=== PATIENT | female | born 1985 | race Caucasian/White ===

== ENCOUNTER 2019-03-09 08:00 | Outpatient (CLI) | payer MEDICAID | END 2019-03-09 23:59 | disposition home or self-care (01) | LOC: LAB.R 08:00 | PROVIDERS: ATTEND Nurse Practitioner Obstetrics & Gynecology | DX: N89.8 Other specified noninflammatory disorders of vagina (principal); Z11.3 Encounter for screening for infections with a predominantly sexual mode of transmission | CPT/HCPCS: 36415; 81599; 86592; 86695; 86696; 86803; 87389; 87480; 87491; 87510; 87591; 87660 ==

== ENCOUNTER 2019-03-09 09:39 | Outpatient (CLI) | payer MEDICAID ==
[2019-03-10 13:46] LABS: HIV AG/AB 4TH GEN NON-REACTIVE (NON-REACTIVE)
[2019-03-10 14:53] LABS: HEPATITIS C ANTIBODY NON-REACTIVE (NON-REACTIVE)
[2019-03-11 12:07] LABS: HSV 1 IGG TYPE SPECIFIC AB 22.3 index; HSV 2 IGG TYPE SPECIFIC AB 1.12 index
== END 2019-03-09 09:40 | disposition home or self-care (01) ==
LOC: LAB.F 09:39
PROVIDERS: ATTEND Nurse Practitioner Obstetrics & Gynecology
DX: Z11.3 Encounter for screening for infections with a predominantly sexual mode of transmission (principal)
CPT/HCPCS: 36415; 81599; 86695; 86696; 86803; 87389

== ENCOUNTER 2020-05-16 07:00 | Outpatient (CLI) | payer MEDICAID ==
[2020-05-16 19:00] LABS: CANDIDA GROUP DNA NEGATIVE (NEGATIVE); CANDIDA KRUSEI DNA NEGATIVE (NEGATIVE); TRICHOMONAS VAGINALIS DNA NEGATIVE (NEGATIVE)
== END 2020-05-16 23:59 | disposition home or self-care (01) ==
LOC: LAB.R 07:00
PROVIDERS: ATTEND Advanced Practice Midwife
DX: N76.0 Acute vaginitis (principal)
CPT/HCPCS: 87661; 87801

== ENCOUNTER 2021-03-31 09:34 | Outpatient (CLI) | payer MEDICAID ==
[2021-03-31 15:28] LABS: BASOPHILS % (AUTO) 0.5 %; EOSINOPHILS # (AUTO) 0.1 10^3/uL (0.0-0.7); EOSINOPHILS % (AUTO) 1.8 %; HCT - HEMATOCRIT 38.5 % (37.0-47.0); LYMPHOCYTES # (AUTO) 2.4 10^3/uL (1.5-3.5); LYMPHOCYTES % (AUTO) 33.2 %; MEAN CORPUSCULAR HGB CONC 28.6 g/dL (32.0-36.0); MEAN CORPUSCULAR VOLUME 77.2 fL (81.0-99.0); MEAN PLATELET VOLUME 8.8 fL (7.9-10.8); MONOCYTES # (AUTO) 0.5 10^3/uL (0.0-1.0); MONOCYTES % (AUTO) 7.1 %; NEUTROPHILS # (AUTO) 4.2 10^3/uL (1.5-6.6); PLT - PLATELET COUNT 370 10^3/uL (130-450); RED BLOOD COUNT 4.99 10^6/uL (4.20-5.40); RED CELL DISTRIBUTION WIDTH 16.2 % (12.0-15.0); WHITE BLOOD COUNT 7.3 x10^3/uL (4.8-10.8)
[2021-03-31 16:06] LABS: ALBUMIN/GLOBULIN RATIO 1.1 (1.0-2.2); BILIRUBIN,TOTAL 0.7 mg/dL (0.2-1.0); CREATININE 0.6 mg/dL (0.4-1.0); POTASSIUM 3.8 mmol/L (3.5-5.0); TOTAL PROTEIN 7.6 g/dL (6.7-8.2)
[2021-03-31 16:53] LABS: THYROID STIMULATING HORMONE 1.48 uIU/mL (0.34-5.60)
== END 2021-03-31 09:35 | disposition home or self-care (01) ==
LOC: LAB.S 09:34
PROVIDERS: ATTEND Registered Nurse
DX: F41.9 Anxiety disorder, unspecified (principal); F32.9 Major depressive disorder, single episode, unspecified; Z79.899 Other long term (current) drug therapy
CPT/HCPCS: 36415; 80053; 84443; 85025

== ENCOUNTER 2021-11-14 09:00 | Outpatient (CLI) | payer MEDICAID ==
[2021-11-15 01:41] LABS: BACTERIAL VAGINOSIS DNA NEGATIVE (NEGATIVE); CANDIDA GLABRATA DNA NEGATIVE (NEGATIVE); CANDIDA GROUP DNA NEGATIVE (NEGATIVE); CANDIDA KRUSEI DNA NEGATIVE (NEGATIVE); TRICHOMONAS VAGINALIS DNA NEGATIVE (NEGATIVE)
== END 2021-11-14 23:59 | disposition home or self-care (01) ==
LOC: LAB.WC 09:00
PROVIDERS: ATTEND Nurse Practitioner Obstetrics & Gynecology
DX: N89.8 Other specified noninflammatory disorders of vagina (principal)
CPT/HCPCS: 87661; 87801

== ENCOUNTER 2022-03-20 14:53 | Outpatient (CLI) | payer MEDICAID ==
--- NOTE | 2022-03-22 16:42 | XRAY Report ---
PROCEDURE: Hips 2V BILAT INDICATIONS: ELBOW, WRIST, HIP PAIN TECHNIQUE: 2 views of the right hip and left hip were acquired. COMPARISON: None FINDINGS: Bones: No fractures or dislocations. No suspicious bony lesions. The visualized pelvic ring appear s intact. Mild bilateral hip osseous hypertrophy Soft tissues: No suspicious soft tissue calcifications or masses. Intrauterine device projects over the mid pelvis. IMPRESSION: Mild bilateral hip osteoarthritis. Reviewed by: Lorri Wells MD, PhD on 03/22/2022 4:41 PM PDT Approved by: Lorri Wells MD, PhD on 03/22/2022 4:41 PM PDT Station ID: [id number]
--- NOTE | 2022-03-22 18:22 | XRAY Report ---
PROCEDURE: Elbow 2 View RT INDICATIONS: ELBOW, WRIST, HIP PAIN TECHNIQUE: 2 views of the elbow were acquired. COMPARISON: None FINDINGS: Bones: No fractures or dislocations. No suspicious bony lesions. Soft tissues: No elbow joint effusion. No suspicious soft tissue calcifications. IMPRESSION: Right elbow without acute fracture or dislocation. No significant degenerative change. Reviewed by: Femi Zamarripa MD on 03/22/2022 6:20 PM PDT Approved by: Femi Zamarripa MD on 03/22/2022 6:20 PM PDT Station ID: [id number]
--- NOTE | 2022-03-22 18:24 | XRAY Report ---
PROCEDURE: Elbow 2 View LT INDICATIONS: ELBOW, WRIST, HIP PAIN TECHNIQUE: 2 views of the elbow were acquired. COMPARISON: None FINDINGS: Bones: No fractures or dislocations. No suspicious bony lesions. Soft tissues: No elbow joint effusion. No suspicious soft tissue calcifications. IMPRESSION: Left elbow without acute fracture or dislocation. No significant degenerative change. Reviewed by: Femi Zamarripa MD on 03/22/2022 6:22 PM PDT Approved by: Femi Zamarripa MD on 03/22/2022 6:22 PM PDT Station ID: [id number]
--- NOTE | 2022-03-22 18:34 | XRAY Report ---
PROCEDURE: Wrist 2 View BILAT INDICATIONS: ELBOW, WRIST, HIP PAIN TECHNIQUE: 3 views of each wrist were acquired. COMPARISON: None FINDINGS: Bones: No fractures or dislocations. No suspicious bony lesions. No significant degenerative bello es. Normal bone mineral density. No osseous erosions. Soft tissues: No suspicious soft tissue calcifications. IMPRESSION: Bilateral wrist without acute radiographic abnormalities or significant degenerative changes. Reviewed by: Femi Zamarripa MD on 03/22/2022 6:32 PM PDT Approved by: Femi Zamarripa MD on 03/22/2022 6:32 PM PDT Station ID: [id number]
== END 2022-03-20 14:54 | disposition home or self-care (01) ==
LOC: DI.S 14:53
PROVIDERS: ATTEND Registered Nurse
DX: M16.0 Bilateral primary osteoarthritis of hip (principal); M25.522 Pain in left elbow; M25.521 Pain in right elbow; M25.531 Pain in right wrist; M25.532 Pain in left wrist

== ENCOUNTER 2023-02-05 11:15 | Outpatient (CLI) | payer MEDICAID ==
--- NOTE | 2023-02-05 10:08 | XRAY Report ---
PROCEDURE: Cervical Spine 2 View INDICATIONS: CERVICAL RADICULOPATHY TECHNIQUE: 3 view(s) of the cervical spine were acquired. COMPARISON: None. FINDINGS: Bones: No fractures or dislocations to the C7 level. The lateral masses of C1 appear intact on the odontoid view. No suspicious bony lesions. Soft tissues: No prevertebral soft tissue swelling. IMPRESSION: No significant degenerative change. Reviewed by: Salomón Don on 02/05/2023 10:07 AM [facility] Approved by: Salomón Don on 02/05/2023 10:07 AM [facility] Station ID: [id number]
== END 2023-02-05 11:16 | disposition home or self-care (01) ==
LOC: DI.S 11:15
PROVIDERS: ATTEND Physician Assistant Medical
DX: M54.12 Radiculopathy, cervical region (principal)

== ENCOUNTER 2023-08-08 12:51 | Outpatient (CLI) | payer MEDICAID | END 2023-08-08 12:52 | disposition home or self-care (01) | LOC: SC 12:51 | PROVIDERS: ATTEND Nurse Practitioner Family | DX: G47.33 Obstructive sleep apnea (adult) (pediatric) (principal); R09.02 Hypoxemia; E66.9 Obesity, unspecified; Z68.37 Body mass index [BMI] 37.0-37.9, adult | CPT/HCPCS: 95806 ==

== ENCOUNTER 2023-08-29 09:55 | Outpatient (CLI) | payer MEDICAID ==
--- NOTE | 2023-08-29 13:57 | XRAY Report ---
PROCEDURE: Chest 2 View X-Ray INDICATIONS: BRONCHITIS TECHNIQUE: 2 views of the chest were acquired. COMPARISON: None. FINDINGS: Surgical changes and devices: None. Lungs and pleura: No pleural effusions or pneumothorax. Lungs are clear. Mediastinum: Mediastinal contours appear normal. Heart size is normal. Bones and chest wall: No suspicious bony lesions. Overlying soft tissues appear unremarkable. IMPRESSION: No acute cardiopulmonary process. Reviewed by: Dayana Delgado MD on 08/29/2023 1:56 PM PDT Approved by: Dayana Delgado MD on 08/29/2023 1:56 PM PDT Station ID: [id number]
== END 2023-08-29 23:59 | disposition home or self-care (01) ==
LOC: DI.S 09:55
PROVIDERS: ATTEND Emergency Medicine
DX: J20.9 Acute bronchitis, unspecified (principal)

== ENCOUNTER 2023-09-11 15:00 | Outpatient (CLI) | payer MEDICAID ==
--- NOTE | 2023-09-11 14:59 | SLEEP CARE CONSULTATION ---
Information from patient questionnaire entered by Violetta Mixon. I have reviewed and concur with the information entered by Violetta Mixon. This document represents the service I personally performed and the decisions made by , Marisela Moon ARNP. History of Present Illness Service Date and Time: 09/11/2023 1440 Initial [place] Sleepiness Scale score: 6 (06/20/23) Current [place] Sleepiness Scale score: 8 (09/11/23) Additional HPI information: STACY MORFIN returns via video telehealth visit for follow up and results of the recently performed home sleep study. Her sleep study showed mild obstructive sleep apnea with an average AHI of 8.2 and danica oxygen saturation of 88%. I explained the pathophysiology behind obstructive sleep apnea. We then spent quite a bit of time discussing different treatment options. For mild obs tructive sleep apnea, surgery and oral appliance are alternatives to nasal CPAP therapy but in moderate or severe cases, nasal CPAP is the most effective and reliable treatment. I reviewed the impact of weight changes on sleep apnea and strongly recommended losing weight. Patient counseled not drink alcohol less than 4 hours before bedtime as it can increase snoring and apnea. Patient was cautioned about risks of drowsy driving until sleepiness symptoms resolve. Patient denies drowsy driving. Sleep Study - Results Type of Sleep Study: Home sleep study (COMPLETED 08/08/23) Prior sleep studies: No Polysomnography/Home Sleep Study results: Physician Impression: The quality of the study is good. The length of the study is adequate (> 240 minutes). Please also see the tabulated and graphic data. 1. Obstructive Sleep Apnea-Hypopnea (ICD-10 G47.33), mild, with an AHI of 8.2/hr and danica SaO2 of 88%. During the study, the patient had 12 apneas (12 obstructive, 0 central, 0 mixed) and 52 hypopneas. The longest episode lasted 99.0 seconds. The respiratory events occurred more frequently during supine sleep (supine AHI was 12.1 and non-supine, 6.80). 2. Hypoxemia (ICD-10 R09.02), minimal, with the lowest oxygen saturation of 88 % and 0.3 minutes with SaO2 under 90%. Baseline oxygen saturation was normal (Average oxygen saturation was 95%). Allergies and Home Medications Known drug allergies: No Drug allergies reviewed: Yes Home medication list reviewed: Yes (no changes) Allergy and home medication list: Allergies No Known Drug Allergies Allergy (Verified 09/04/23 15:25) Review of Systems Review of systems same as previous: Yes (NO CHANGE) Physical Exam Vital signs obtained and entered by: VIOLETTA Antoine MA Height: 5 ft (PER PT) Weight: 195 lb (PER PT) Body Mass Index: 38.0 BMI Classification: Obese Impression and Plan 1. Obstructive Sleep Apnea-Hypopnea Syndrome, mild, with lowest oxygen saturation of 8.2. Obviously this is the cause of the patients symptoms of unrefreshed sleep, and excessive daytime sleepiness. Positive pressure therapy could benefit possible fibromyalgia, anxiety and depression. The patient chose an oral appliance to treat their apnea. We will followup with her a month after she starts using the oral appliance to see if appliance has reduced symptoms. If so, another polysomnography will be ordered with use of the oral appliance to check efficacy in reducing apnea. Until patient is able to use the oral appliance, positional therapy is advised to avoid supine sleep with pillow positioning or one of the commercial products because apnea is more severe supine. 2. Hypoxemia, minimal, with a danica oxygen saturation of 88% and 0.3 minutes spent under 90%. Her baseline oxygen saturation was normal with an average oxygen saturation of 95%. 2. Obesity, unspecified. Currently patients BMI is 38. Obesity increases the risk of apnea, CPAP pressure requirements and overall health risks especially cardiovascular and diabetes. Thus patient is advised to lose weight. * Oral appliance * Attempt to lose weight. * Avoid alcohol consumption near bedtime. * Avoid supine sleep until using oral appliance. * The patient is again cautioned about driving until sleepiness completely resolves. * Return one month after oral appliance obtained. I will assess response to therapy at that time. Counseling Topics: Weight loss health impact Prescriptions: Other (Oral appliance) Visit Type: Telehealth Video Video Type: Doximity Patient Location: Work Location of Provider: Office Patient agrees and consents to this telehealth visit type: Yes Patient agrees to have their insurance billed: Yes Time Spent with Patient (minutes): 18 Provider Statement: I spent 100% of the Telehealth Video Call with the patient with greater than 50% spent counseling the patient and coordination of care.
== END 2023-09-11 15:01 | disposition home or self-care (01) ==
LOC: SC 15:00
PROVIDERS: ATTEND Nurse Practitioner Family
DX: G47.33 Obstructive sleep apnea (adult) (pediatric) (principal); R09.02 Hypoxemia; E66.9 Obesity, unspecified; Z68.38 Body mass index [BMI] 38.0-38.9, adult

== ENCOUNTER 2023-09-13 07:00 | Outpatient (CLI) | payer MEDICAID ==
--- NOTE | 2023-09-13 19:35 | XRAY Report ---
PROCEDURE: Chest 2 View X-Ray INDICATIONS: LEFT CHEST PAIN TECHNIQUE: 2 views of the chest were obtained. COMPARISON: 08/29/2023 FINDINGS: Surgical changes and devices: None. Lungs and pleura: No pleural effusions or pneumothorax. Lungs are clear. Mediastinum: Mediastinal contours appear normal. Heart size is normal. Bones and chest wall: No suspicious bony lesions. Overlying soft tissues appear unremarkable. IMPRESSION: Normal two-view chest x-ray Reviewed by: Daren Gonsalves MD on 09/13/2023 6:34 PM [facility] Approved by: Daren Gonsalves MD on 09/13/2023 6:34 PM [facility] Station ID: [id number]
== END 2023-09-13 23:59 | disposition home or self-care (01) ==
LOC: DI.S 07:00
PROVIDERS: ATTEND Physician Assistant
DX: R07.89 Other chest pain (principal)

== ENCOUNTER 2024-05-13 08:28 | Outpatient (CLI) | payer MEDICAID ==
[2024-05-13 15:09] LABS: BASOPHILS # (AUTO) 0.1 10^3/uL (0.0-0.1); BASOPHILS % (AUTO) 0.9 %; EOSINOPHILS # (AUTO) 0.2 10^3/uL (0.0-0.7); EOSINOPHILS % (AUTO) 3.3 %; HCT - HEMATOCRIT 41.2 % (37.0-47.0); HGB - HEMOGLOBIN 12.5 g/dL (12.0-16.0); LYMPHOCYTES # (AUTO) 2.4 10^3/uL (1.5-3.5); LYMPHOCYTES % (AUTO) 33.5 %; MEAN CORPUSCULAR HEMOGLOBIN 26.5 pg (27.0-31.0); MEAN CORPUSCULAR HGB CONC 30.3 g/dL (32.0-36.0); MEAN CORPUSCULAR VOLUME 87.3 fL (81.0-99.0); MEAN PLATELET VOLUME 8.5 fL (7.9-10.8); MONOCYTES # (AUTO) 0.5 10^3/uL (0.0-1.0); MONOCYTES % (AUTO) 6.5 %; NEUTROPHILS # (AUTO) 3.9 10^3/uL (1.5-6.6); NEUTROPHILS % (AUTO) 55.5 %; PLT - PLATELET COUNT 343 10^3/uL (130-450); RED BLOOD COUNT 4.72 10^6/uL (4.20-5.40); RED CELL DISTRIBUTION WIDTH 13.2 % (12.0-15.0); WHITE BLOOD COUNT 7.1 x10^3/uL (4.8-10.8)
[2024-05-13 15:26] LABS: ALBUMIN 3.9 g/dL (3.2-5.5); ALBUMIN/GLOBULIN RATIO 1.3 (1.0-2.2); ALKALINE PHOSPHATASE 61 IU/L (42-121); ALT ALANINE AMINOTRANSFERASE 11 IU/L (10-60); AST ASPARTATE AMINOTRANSFERASE 15 IU/L (10-42); BILIRUBIN,TOTAL 0.4 mg/dL (0.2-1.0); BUN - BLOOD UREA NITROGEN 13 mg/dL (6-20); CALCIUM 8.8 mg/dL (8.5-10.3); CARBON DIOXIDE - CO2 28 mmol/L (21-32); CHLORIDE 106 mmol/L (101-111); CHOL/HDL RATIO 3.1 (<4.4); CHOLESTEROL 147 mg/dL; CREATININE 0.7 mg/dL (0.6-1.3); GFR - MDRD 92 (>89); GLUCOSE 77 mg/dL (74-104); HDL CHOLESTEROL 47 mg/dL; LDL CHOLESTEROL,CALCULATED 73 mg/dL; LDL/HDL RATIO 1.6 (<4.4); POTASSIUM 3.8 mmol/L (3.5-4.5); SODIUM 137 mmol/L (135-145); TOTAL PROTEIN 6.8 g/dL (6.4-8.9); TRIGLYCERIDES 133 mg/dL (48-352); VLDL CHOLESTEROL 27 mg/dL
== END 2024-05-13 08:29 | disposition home or self-care (01) ==
LOC: LAB.S 08:28
PROVIDERS: ATTEND Registered Nurse
DX: N93.9 Abnormal uterine and vaginal bleeding, unspecified (principal); Z13.228 Encounter for screening for other metabolic disorders; Z13.220 Encounter for screening for lipoid disorders; Z13.0 Encounter for screening for diseases of the blood and blood-forming organs and certain disorders involving the immune mechanism
CPT/HCPCS: 36415; 80053; 80061; 83721; 84443; 85025

== ENCOUNTER 2024-05-21 09:18 | Outpatient (CLI) | payer MEDICAID ==
[2024-05-21] MEDS ORDERED: iohexoL-300 100 ML VIAL ONE (09:22)
[2024-05-21] MEDS: iohexoL-300 100 ML VIAL IVP ONE (10:18)
--- NOTE | 2024-05-22 09:32 | CT Report ---
PROCEDURE: Chest W INDICATIONS: NUMBNESS AND TINGLING RIGHT ARM CONTRAST: 100ml omni 300 TECHNIQUE: After the administration of intravenous contrast, a CT scan of the chest was performed. Images were recorded and evaluated at appropriate window settings. Reformats: axial MIP of the chest, coronal and sagittal. For radiation dose reduction, the following was used: automated exposure control, adjustme nt of mA and/or kV according to patient size. COMPARISON: Chest x-ray, 09/13/2023. FINDINGS: Image quality: Diagnostic. Chest wall and lower neck: No thyroid nodule which requires sonographic follow up. No breast mass. No axillary or supraclavicular adenopathy by size. Lungs and pleura: Mild basilar atelectasis. No consolidation. No pleural effusions. No pneumothorax. No suspicious pulmonary nodules which require follow up. Mediastinum: Heart size is normal. No pericardial effusion. No large vessel abnormality. No mediastin al adenopathy by size criteria. Subclavian arteries and veins are patent bilaterally. Bones: No aggressive osseous abnormality. Upper Abdomen: Unremarkable. IMPRESSION: 1. A cause for right arm numbness and tingling is not identified. 2. Mild left basilar atelectasis. Reviewed by: Dayana Delgado MD on 05/22/2024 9:31 AM PDT Approved by: Dayana Delgado MD on 05/22/2024 9:31 AM PDT Station ID: [id number]
== END 2024-05-21 09:19 | disposition home or self-care (01) ==
LOC: DI 09:18
PROVIDERS: ATTEND Registered Nurse
DX: R20.2 Paresthesia of skin (principal); J98.11 Atelectasis
CPT/HCPCS: 71260; Q9967